=== PATIENT | female | born 1935 | race Caucasian/White ===

== ENCOUNTER 2016-11-11 21:21 | Observation (INO) | payer MEDICARE, OTHER ==
[~2016-11-11] VITALS: Ht 165.1 cm; Wt 78.2 kg
[2016-11-11 22:08] LABS: ASPARTATE AMINO TRANSFERASE 18 U/L (15-37); BLOOD UREA NITROGEN 17 mg/dL (7-18)
[2016-11-11 22:16] LABS: IS PT STATUS REG ER OR PRE ER? YES
[2016-11-12] MEDS ORDERED: ACETAMINOPHEN 325 MG TABLET ONE (00:43)
[2016-11-12] MEDS ORDERED: ACETAMINOPHEN 325 MG TABLET PO ONE (01:00)
[2016-11-12] MEDS ORDERED: BISACODYL 10 MG SUPP PR PRN (03:00)
[2016-11-12] MEDS ORDERED: POLYETHYLENE GLYCOL 17 GM PACKET PO PRN (03:00)
[2016-11-12] MEDS ORDERED: ACETAMINOPHEN 325 MG TABLET PO PRN (03:00)
[2016-11-12] MEDS ORDERED: DOCUSATE 100 MG CAPSULE PO PRN (03:00)
[2016-11-12] MEDS ORDERED: hydrALAzine 20 MG/ML, 1ML IVPush PRN (03:00)
[2016-11-12] MEDS ORDERED: ENOXAPARIN 40 MG/0.4 ML SQ SCH (03:00)
[2016-11-12] MEDS ORDERED: ONDANSETRON 2MG/ML, 2ML IVPush PRN (03:00)
[2016-11-12 03:24] VITALS: BP 157/51
[2016-11-12 07:09] VITALS: BP 169/69
[2016-11-12] MEDS: SODIUM CHLORIDE FLUSH 10ML SYR IVF SCH ×2 (09:00→21:00)
[2016-11-12] MEDS ORDERED: HYDR25TA6 PO (10:06)
[2016-11-12] MEDS ORDERED: LORA-869 PO (10:06)
[2016-11-12] MEDS ORDERED: OMEP-110 PO (10:06)
[2016-11-12] MEDS ORDERED: FELO10TA PO (10:06)
[2016-11-12] MEDS ORDERED: LOVA20TA2 PO (10:06)
[2016-11-12] MEDS ORDERED: VENL150C6 PO (10:06)
[2016-11-12] MEDS ORDERED: LOSA100T6 PO (10:06)
[2016-11-12] MEDS ORDERED: LOSARTAN 50MG TABLET PO SCH (10:30)
[2016-11-12] MEDS ORDERED: VENLAFAXINE 75 MG CAP ER PO SCH (10:30)
[2016-11-12] MEDS ORDERED: LORATADINE 10 MG TABLET PO SCH (10:30)
[2016-11-12] MEDS ORDERED: HYDROCHLOROTHIAZIDE 25 MG TABLET PO SCH (10:30)
[2016-11-12 13:51] VITALS: BP 164/79
[2016-11-12 21:08] VITALS: BP 166/77
[2016-11-12 23:48] VITALS: BP 169/79
[2016-11-13 03:24] VITALS: BP 127/59
== END 2016-11-13 05:20 | disposition home or self-care (01) ==
LOC: ED 23:13 → INTOOBSV 11-12 02:06 → EDIP 11-12 02:06 → SUATTDRO 11-12 02:20 → 4NOR 11-12 03:00 → UNDODISIN 11-13 05:20
PROVIDERS: ATTEND Hospitalist
DX: R09.02 Hypoxemia (principal); J96.01 Acute respiratory failure with hypoxia; I10 Essential (primary) hypertension; F41.9 Anxiety disorder, unspecified; E78.5 Hyperlipidemia, unspecified; E87.1 Hypo-osmolality and hyponatremia; F41.1 Generalized anxiety disorder
CPT/HCPCS: 36415; 71010; 80053; 83880; 84484; 85025; 93005; 99285; G0378